=== PATIENT | female | born 1995 | race Caucasian/White ===

== ENCOUNTER 2019-07-18 11:59 | Emergency (ER) | payer BC, OTHER ==
[2019-07-18 12:19] VITALS: RESP 18
[2019-07-18] MEDS ORDERED: ACETAMINOPHEN TAB 500 MG TAB PO STA (12:43)
[2019-07-18] MEDS ORDERED: DEXAMETHASONE SOD PHOSPHATE 10 MG/ML 1 ML VIAL IV STA (12:43)
[2019-07-18] MEDS ORDERED: ONDANSETRON 4 MG/2 ML VIAL IVP STA (12:46)
[2019-07-18] MEDS ORDERED: SODIUM CHLORIDE 0.9% 1,000 ML IV STA ×2 (12:47)
[2019-07-18] MEDS ORDERED: KETOROLAC 30 MG/ML 1 ML VIAL IVP STA (12:48)
[2019-07-18 12:53] LABS: Appearance,Urine Cloudy (Clear); Bacteria,Urine Occasional /hpf; Bilirubin,Urine Negative (Negative); Blood,Urine Negative (Negative); Color,Urine Yellow; Glucose,Urine (UA) Negative (Negative); Ketones,Urine 2+ (Negative); Leukocyte Esterase,Urine Negative (Negative); Mucus,Urine Moderate /hpf; Nitrite,Urine Negative (Negative); PH, Urine 5.5 (5.0-8.0); Protein,Urine Trace (Negative); Specific Gravity,Urine 1.023 (1.001-1.035); Squamous Epithelial Cell,Urine 15 /hpf (0-4); Urobilinogen,Urine <2.0 mg/dL (<2.0); WBC,Urine 2 /hpf (0-5)
--- NOTE | 2019-07-18 13:09 | ED ---
General Adult HPI - General Chief complaint: Abdominal Pain Stated complaint: Vomiting, cough, TIFFANIE Time Seen by Provider: 07/18/19 12:24 Source: patient, family Mode of arrival: ambulatory Limitations: no limitations - History of Present Illness Initial comments: this 23-year-old white female presents with a complaint of feeling sick over the last week. She's had a cough, runny nose, sore throat, chills, and upper abdominal pain. She's had some moderate fatigue as well. She was seen in urgent care couple days ago and had a negative strep test. They did put her on an antibiotic which she's taken for the last couple of days without any significant relief. She denies any actual known fever.She relates that she currently is taking the Keflex. She is unsure if she could be but states that this is a possibility. She has irregular periods and thinks her last period was in May. - Related Data Home Medications Medication Instructions Recorded Confirmed Naproxen [Naprosyn] 250 mg PO BID 01/09/16 01/09/16 Previous Rx's Medication Instructions Recorded Albuterol Sulfate [Proair Hfa] 1 - 2 puff INHALATION Q6HR PRN #1 07/18/19 inhaler Amoxic-Pot Clav 875-125Mg 1 each PO Q12HR #20 tablet 07/18/19 [Augmentin Xr 875-125] Metoclopramide [Reglan] 10 mg PO Q6H PRN #30 tab 07/18/19 Allergies Allergy/AdvReac Type Severity Reaction Status Date / Time No Known Allergies Allergy Verified 01/09/16 17:31 Review of Systems ROS Statement: Those systems with pertinent positive or pertinent negative responses have been documented in the HPI. ROS Other: All systems not noted in ROS Statement are negative. Past Medical History Past Medical History: No Reported History History of Any Multi-Drug Resistant Organisms: None Reported Past Surgical History: No Surgical Hx Reported Additional Past Surgical History / Comment(s): pyloric stenosis 6 wks Past Psychological History: No Psychological Hx Reported Smoking Status: Never smoker Past Alcohol Use History: Occasional Past Drug Use History: Marijuana General Exam Limitations: no limitations Course Vital Signs 07/18/19 07/18/19 12:16 14:19 Temperature 98.8 F Pulse Rate 72 62 Respiratory 18 18 Rate Blood Pressure 130/78 119/70 O2 Sat by Pulse 100 98 Oximetry Medical Decision Making - Medical Decision Making the patient was seen and examined. All diagnostics were reviewed. The urine came back slightly positive. The quantitative beta-hCG was significantly elevated. The chest x-ray was then canceled due to her . She does receive some Reglan intravenously as well as IV fluids and Tylenol. She is having some relief on recheck. It is felt as though her nausea could certainly be related to the . It also could be related to her current medical condition. The mono, strep, and and influenza test came back negative. The CBC was essentially within normal limits. It is felt that she likely does have a sinusitis. The possibility of a bronchitis certainly is possible as well. She'll be tried on several medications and it is felt as though she stable for outpatient treatment. She does relate understand that she should follow-up with an [facility] physician for further treatment as well. - Lab Data Result diagrams: 07/18/19 13:01 Lab Results 07/18/19 07/18/19 07/18/19 Range/Units 12:28 12:28 13:01 WBC 7.1 (3.8-10.6) k/uL RBC 4.34 (3.80-5.40) m/uL Hgb 13.6 (11.4-16.0) gm/dL Hct 41.5 (34.0-46.0) % MCV 95.6 (80.0-100.0) fL MCH 31.4 (25.0-35.0) pg MCHC 32.8 (31.0-37.0) g/dL RDW 12.8 (11.5-15.5) % Plt Count 183 (150-450) k/uL Neutrophils % 73 % Lymphocytes % 18 % Monocytes % 6 % Eosinophils % 1 % Basophils % 0 % Neutrophils # 5.2 (1.3-7.7) k/uL Lymphocytes # 1.3 (1.0-4.8) k/uL Monocytes # 0.4 (0-1.0) k/uL Eosinophils # 0.0 (0-0.7) k/uL Basophils # 0.0 (0-0.2) k/uL HCG, Quant mIU/mL Urine Color Yellow Urine Appearance Cloudy H (Clear) Urine pH 5.5 (5.0-8.0) Ur Specific Monitor 1.023 (1.001-1.035) Urine Protein Trace H (Negative) Urine Glucose (UA) Negative (Negative) Urine Ketones 2+ H (Negative) Urine Blood Negative (Negative) Urine Nitrite Negative (Negative) Urine Bilirubin Negative (Negative) Urine Urobilinogen <2.0 (<2.0) mg/dL Ur Leukocyte Esterase Negative (Negative) Urine WBC 2 (0-5) /hpf Ur Squamous Epith Cells 15 H (0-4) /hpf Urine Bacteria Occasional H (None) /hpf Urine Mucus Moderate H (None) /hpf Urine HCG, Qual Detected (Not Detectd) Heterophile Antibody (Negative) Influenza Type A RNA (Not Detectd) Influenza Type B (PCR) (Not Detectd) Group A Strep Rapid (Negative) 07/18/19 07/18/19 07/18/19 Range/Units 13:01 13:01 13:01 WBC (3.8-10.6) k/uL RBC (3.80-5.40) m/uL Hgb (11.4-16.0) gm/dL Hct (34.0-46.0) % MCV (80.0-100.0) fL MCH (25.0-35.0) pg MCHC (31.0-37.0) g/dL RDW (11.5-15.5) % Plt Count (150-450) k/uL Neutrophils % % Lymphocytes % % Monocytes % % Eosinophils % % Basophils % % Neutrophils # (1.3-7.7) k/uL Lymphocytes # (1.0-4.8) k/uL Monocytes # (0-1.0) k/uL Eosinophils # (0-0.7) k/uL Basophils # (0-0.2) k/uL HCG, Quant mIU/mL Urine Color Urine Appearance (Clear) Urine pH (5.0-8.0) Ur Specific Monitor (1.001-1.035) Urine Protein (Negative) Urine Glucose (UA) (Negative) Urine Ketones (Negative) Urine Blood (Negative) Urine Nitrite (Negative) Urine Bilirubin (Negative) Urine Urobilinogen (<2.0) mg/dL Ur Leukocyte Esterase (Negative) Urine WBC (0-5) /hpf Ur Squamous Epith Cells (0-4) /hpf Urine Bacteria (None) /hpf Urine Mucus (None) /hpf Urine HCG, Qual (Not Detectd) Heterophile Antibody Negative (Negative) Influenza Type A RNA Not Detected (Not Detectd) Influenza Type B (PCR) Not Detected (Not Detectd) Group A Strep Rapid Negative (Negative) 07/18/19 Range/Units 13:01 WBC (3.8-10.6) k/uL RBC (3.80-5.40) m/uL Hgb (11.4-16.0) gm/dL Hct (34.0-46.0) % MCV (80.0-100.0) fL MCH (25.0-35.0) pg MCHC (31.0-37.0) g/dL RDW (11.5-15.5) % Plt Count (150-450) k/uL Neutrophils % % Lymphocytes % % Monocytes % % Eosinophils % % Basophils % % Neutrophils # (1.3-7.7) k/uL Lymphocytes # (1.0-4.8) k/uL Monocytes # (0-1.0) k/uL Eosinophils # (0-0.7) k/uL Basophils # (0-0.2) k/uL HCG, Quant 057879.0 mIU/mL Urine Color Urine Appearance (Clear) Urine pH (5.0-8.0) Ur Specific Monitor (1.001-1.035) Urine Protein (Negative) Urine Glucose (UA) (Negative) Urine Ketones (Negative) Urine Blood (Negative) Urine Nitrite (Negative) Urine Bilirubin (Negative) Urine Urobilinogen (<2.0) mg/dL Ur Leukocyte Esterase (Negative) Urine WBC (0-5) /hpf Ur Squamous Epith Cells (0-4) /hpf Urine Bacteria (None) /hpf Urine Mucus (None) /hpf Urine HCG, Qual (Not Detectd) Heterophile Antibody (Negative) Influenza Type A RNA (Not Detectd) Influenza Type B (PCR) (Not Detectd) Group A Strep Rapid (Negative) Disposition Clinical Impression: Bronchitis, Sinusitis, Disposition: HOME SELF-CARE Condition: Good Additional Instructions: Please use Tylenol if needed for any fever or chills or pain. Please avoid any Motrin, ibuprofen, Advil, or Aleve. He also may utilize Mucinex DM if needed for cough and congestion safely during . Please follow-up with [facility] as soon as possible for care. Prescriptions: Amoxic-Pot Clav 875-125Mg [Augmentin Xr 875-125] 1 each PO Q12HR #20 tablet Albuterol Sulfate [Proair Hfa] 1 - 2 puff INHALATION Q6HR PRN #1 inhaler PRN Reason: Shortness Of Breath Or Wheezing Metoclopramide [Reglan] 10 mg PO Q6H PRN #30 tab PRN Reason: Nausea Is patient prescribed a controlled substance at d/c from ED?: No Referrals: Umang Jackson MD [Primary Care Provider] - 1-2 days Time of Disposition: 15:32
[2019-07-18] MEDS ORDERED: METOCLOPRAMIDE 5 MG/ML 2 ML VIAL IVP STA (13:10)
[2019-07-18 13:23] LABS: Basophils % (A) 0 %; Eosinophils % (A) 1 %; HCT 41.5 % (34.0-46.0); HGB 13.6 gm/dL (11.4-16.0); Lymphocytes # (A) 1.3 k/uL (1.0-4.8); Lymphocytes % (A) 18 %; MCH 31.4 pg (25.0-35.0); MCHC 32.8 g/dL (31.0-37.0); MCV 95.6 fL (80.0-100.0); Mean Platelet Volume 8.4; Monocytes # (A) 0.4 k/uL (0-1.0); Monocytes % (A) 6 %; Neutrophils # (A) 5.2 k/uL (1.3-7.7); Neutrophils % (A) 73 %; Platelet Count 183 k/uL (150-450); RBC 4.34 m/uL (3.80-5.40); RDW 12.8 % (11.5-15.5); WBC 7.1 k/uL (3.8-10.6)
[2019-07-18 15:43] VITALS: BP 119/75; PULSE 74; TEMP 98
== END 2019-07-18 15:41 | disposition home or self-care (01) ==
LOC: EC 11:59
DX: O99.519 Diseases of the respiratory system complicating pregnancy, unspecified trimester (principal); J40 Bronchitis, not specified as acute or chronic; J32.9 Chronic sinusitis, unspecified; Z3A.00 Weeks of gestation of pregnancy not specified
CPT/HCPCS: 36415; 85025; 86308; 81001; 81025; 84702; 87081; 87430; 87502; 99284; 96374; 96361; J2765

== ENCOUNTER 2019-08-05 18:31 | Emergency (ER) | payer BC ==
[2019-08-05 20:21] VITALS: RESP 18
[2019-08-05 21:36] LABS: Appearance,Urine Cloudy (Clear); Bacteria,Urine Rare /hpf; Bilirubin,Urine Negative (Negative); Blood,Urine Large (Negative); Calcium Oxalate Crystals,Urine Occasional /hpf; Color,Urine Yellow; Glucose,Urine (UA) Negative (Negative); Ketones,Urine Negative (Negative); Leukocyte Esterase,Urine Large (Negative); Mucus,Urine Many /hpf; Nitrite,Urine Negative (Negative); Protein,Urine 1+ (Negative); RBC,Urine 46 /hpf (0-5); Specific Gravity,Urine 1.024 (1.001-1.035); Squamous Epithelial Cell,Urine 9 /hpf (0-4); WBC,Urine 169 /hpf (0-5)
--- NOTE | 2019-08-05 21:37 | CT ---
EXAMINATION TYPE: CT abdomen pelvis wo con DATE OF EXAM: 08/05/2019 COMPARISON: None HISTORY: Bilateral flank pain and hematuria. x2 weeks ago. CT DLP: 377.6 mGycm Automated exposure control for dose reduction was used. Lung bases are clear. There is no pleural effusion. Heart size is normal. There is no pericardial eff usion. Liver and spleen appear normal. Bile ducts are not dilated. Stomach is intact. Gallbladder appears no rmal. There is no evidence of pancreatic mass. There is no adrenal mass. Kidneys have normal size and contour. There is no hydronephrosis. Ureters a re not dilated. Bladder distends smoothly. Uterus is anteverted. There is no free fluid in the pelvis . There is some retained fecal material in the large bowel. Appendix is not seen. I see no sign of th ickened appendix. Uterus is anteverted. There is no sign of a pelvic mass. The lumbar vertebra have normal spacing and alignment. Posterior elements are intact. Bony pelvis is intact. IMPRESSION: No evidence of renal stone or obstruction. Appendix not seen. No sign of appendicitis. Constipation.
[2019-08-05] MEDS ORDERED: cefTRIAXone 1,000 MG VIAL (IM USE) IM STA (21:40)
[2019-08-05] MEDS ORDERED: KETOROLAC 30 MG/ML 1 ML VIAL IVP STA (21:41)
[2019-08-05] MEDS ORDERED: cefTRIAXone IN SWFI 1,000 MG/10 ML SYRINGE IVP STA (21:41)
[2019-08-05 21:59] LABS: Basophils % (A) 0 %; Eosinophils % (A) 0 %; HCT 37.2 % (34.0-46.0); HGB 12.2 gm/dL (11.4-16.0); Lymphocytes # (A) 0.9 k/uL (1.0-4.8); Lymphocytes % (A) 17 %; MCH 31.2 pg (25.0-35.0); MCHC 32.9 g/dL (31.0-37.0); MCV 94.8 fL (80.0-100.0); Mean Platelet Volume 8.3; Monocytes # (A) 0.4 k/uL (0-1.0); Monocytes % (A) 8 %; Neutrophils # (A) 3.9 k/uL (1.3-7.7); Neutrophils % (A) 72 %; Platelet Count 171 k/uL (150-450); RBC 3.93 m/uL (3.80-5.40); RDW 13.5 % (11.5-15.5); WBC 5.3 k/uL (3.8-10.6)
[2019-08-05 22:10] LABS: ALT 10 U/L (4-34); AST 17 U/L (14-36); African American GFR (CKD) >90 (>60 ml/min/1.73 sqM); Albumin 3.5 g/dL (3.5-5.0); Alkaline Phosphatase 65 U/L (38-126); Anion Gap 6 mmol/L; Blood Urea Nitrogen 10 mg/dL (7-17); Calcium 8.5 mg/dL (8.4-10.2); Carbon Dioxide 24 mmol/L (22-30); Chloride 110 mmol/L (98-107); Glucose 97 mg/dL (74-99); Non-African American GFR(CKD) >90 (>60 ml/min/1.73 sqM); Potassium 3.9 mmol/L (3.5-5.1); Sodium 140 mmol/L (137-145); Total Bilirubin 0.4 mg/dL (0.2-1.3); Total Protein 6.3 g/dL (6.3-8.2)
--- NOTE | 2019-08-05 22:19 | ED ---
Female Urogenital HPI - General Chief complaint: Urogenital Stated complaint: UTI Time Seen by Provider: 08/05/19 20:46 Source: patient, family Mode of arrival: ambulatory Limitations: no limitations - History of Present Illness Initial comments: 24yo female 2 weeks status post medication induced elective , presenting to the ER for dysuria urgency frequency or hematuria. Patient states that she has had dysuria urgency frequency and blood in her urine for the past few days. Patient states is very painful to urinate that she could no longer take it. Patient states she has palpable back pain bilaterally. Patient denies unilateral plain nausea or vomiting. Patient denies history of kidney stones or fevers. Patient states that when the pain persisted today despite her taking 1- 2 left over keflex a day from previous UTI she presented to the ER for evaluation. Upon arrival patient does not appear distressed is afebrile. - Related Data Home Medications Medication Instructions Recorded Confirmed Naproxen [Naprosyn] 250 mg PO BID 01/09/16 01/09/16 Previous Rx's Medication Instructions Recorded Albuterol Sulfate [Proair Hfa] 1 - 2 puff INHALATION Q6HR PRN #1 07/18/19 inhaler Amoxic-Pot Clav 875-125Mg 1 each PO Q12HR #20 tablet 07/18/19 [Augmentin Xr 875-125] Metoclopramide [Reglan] 10 mg PO Q6H PRN #30 tab 07/18/19 Cephalexin [Keflex] 500 mg PO Q6HR 10 Days #40 cap 08/05/19 Sulfamethox-Tmp 800-160Mg [Bactrim 1 tab PO Q12HR 10 Days #20 tab 08/05/19 DS 800-160 mg] Allergies Allergy/AdvReac Type Severity Reaction Status Date / Time No Known Allergies Allergy Verified 08/05/19 20:22 Review of Systems ROS Statement: Those systems with pertinent positive or pertinent negative responses have been documented in the HPI. ROS Other: All systems not noted in ROS Statement are negative. Past Medical History Past Medical History: No Reported History History of Any Multi-Drug Resistant Organisms: None Reported Past Surgical History: No Surgical Hx Reported Additional Past Surgical History / Comment(s): pyloric stenosis 6 wks Past Psychological History: No Psychological Hx Reported Smoking Status: Never smoker Past Alcohol Use History: Occasional Past Drug Use History: Marijuana General Exam - General Exam Comments Initial Comments: General: The patient is awake and alert, in no distress, and does not appear acutely ill. Eye: +3 mm pupils are equal, round and reactive to light, extra-ocular movements are intact. No nystagmus. There is normal conjunctiva bilaterally. No signs of icterus. Ears, nose, mouth and throat: There are moist mucous membranes and no oral lesions. Neck: The neck is supple, there is no tenderness or JVD. Cardiovascular: There is a regular rate and rhythm. No murmur, rub or gallop is appreciated. Respiratory: Lungs are clear to auscultation, respirations are non-labored, breath sounds are equal. No wheezes, stridor, rales, or rhonchi. Gastrointestinal: Soft, non-distended, non-tender abdomen without masses or organomegaly noted. There is no rebound or guarding present. No CVA tenderness Musculoskeletal: Normal ROM, no tenderness. Strength 5/5. Sensation intact. Pulses equal bilaterally 2+. Neurological: A&O x 3. CN II-XII intact grossly, There are no obvious motor or sensory deficits. Coordination appears grossly intact. Speech is normal. Skin: Skin is warm and dry and no rashes or lesions are noted. Psychiatric: Cooperative, appropriate mood & affect, normal judgment. Limitations: no limitations Course Vital Signs 08/05/19 08/05/19 20:17 22:42 Temperature 99.5 F 99.1 F Pulse Rate 84 75 Respiratory 18 18 Rate Blood Pressure 148/88 139/88 O2 Sat by Pulse 100 99 Oximetry Medical Decision Making - Medical Decision Making CT revealed no stones. Urinalysis concerning for hemorrhagic cystitis. Patient states that she was supposed to get hCG Quant for [employer] to turn today. This was drawn for patient. However I feel is appropriate the patient has difficult levels given she is 2 weeks s/p miscarriage. Patient has no leukocytosis afebrile. Concern for developing pyelonephritis given the patient's complaint of bilateral back. Patient be treated with Bactrim. Return parameters and importance of f/u discussed. Discussed case with attenidng and patient was discharged appearing well nontoxic. - Lab Data Result diagrams: 08/05/19 21:50 08/05/19 21:50 Lab Results 08/05/19 08/05/19 08/05/19 Range/Units 21:00 21:00 21:50 WBC 5.3 (3.8-10.6) k/uL RBC 3.93 (3.80-5.40) m/uL Hgb 12.2 (11.4-16.0) gm/dL Hct 37.2 (34.0-46.0) % MCV 94.8 (80.0-100.0) fL MCH 31.2 (25.0-35.0) pg MCHC 32.9 (31.0-37.0) g/dL RDW 13.5 (11.5-15.5) % Plt Count 171 (150-450) k/uL Neutrophils % 72 % Lymphocytes % 17 % Monocytes % 8 % Eosinophils % 0 % Basophils % 0 % Neutrophils # 3.9 (1.3-7.7) k/uL Lymphocytes # 0.9 L (1.0-4.8) k/uL Monocytes # 0.4 (0-1.0) k/uL Eosinophils # 0.0 (0-0.7) k/uL Basophils # 0.0 (0-0.2) k/uL Sodium (137-145) mmol/L Potassium (3.5-5.1) mmol/L Chloride (98-107) mmol/L Carbon Dioxide (22-30) mmol/L Anion Gap mmol/L BUN (7-17) mg/dL Creatinine (0.52-1.04) mg/dL Est GFR (CKD-EPI)AfAm (>60 ml/min/1.73 sqM) Est GFR (CKD-EPI)NonAf (>60 ml/min/1.73 sqM) Glucose (74-99) mg/dL Calcium (8.4-10.2) mg/dL Total Bilirubin (0.2-1.3) mg/dL AST (14-36) U/L ALT (4-34) U/L Alkaline Phosphatase (38-126) U/L Total Protein (6.3-8.2) g/dL Albumin (3.5-5.0) g/dL HCG, Quant mIU/mL Urine Color Yellow Urine Appearance Cloudy H (Clear) Urine pH 6.0 (5.0-8.0) Ur Specific [place] 1.024 (1.001-1.035) Urine Protein 1+ H (Negative) Urine Glucose (UA) Negative (Negative) Urine Ketones Negative (Negative) Urine Blood Large H (Negative) Urine Nitrite Negative (Negative) Urine Bilirubin Negative (Negative) Urine Urobilinogen 2.0 (<2.0) mg/dL Ur Leukocyte Esterase Large H (Negative) Urine RBC 46 H (0-5) /hpf Urine WBC 169 H (0-5) /hpf Ur Squamous Epith Cells 9 H (0-4) /hpf Calcium Oxalate Crystal Occasional H (None) /hpf Urine Bacteria Rare H (None) /hpf Urine Mucus Many H (None) /hpf Urine HCG, Qual Detected (Not Detectd) 08/05/19 08/05/19 Range/Units 21:50 21:50 WBC (3.8-10.6) k/uL RBC (3.80-5.40) m/uL Hgb (11.4-16.0) gm/dL Hct (34.0-46.0) % MCV (80.0-100.0) fL MCH (25.0-35.0) pg MCHC (31.0-37.0) g/dL RDW (11.5-15.5) % Plt Count (150-450) k/uL Neutrophils % % Lymphocytes % % Monocytes % % Eosinophils % % Basophils % % Neutrophils # (1.3-7.7) k/uL Lymphocytes # (1.0-4.8) k/uL Monocytes # (0-1.0) k/uL Eosinophils # (0-0.7) k/uL Basophils # (0-0.2) k/uL Sodium 140 (137-145) mmol/L Potassium 3.9 (3.5-5.1) mmol/L Chloride 110 H (98-107) mmol/L Carbon Dioxide 24 (22-30) mmol/L Anion Gap 6 mmol/L BUN 10 (7-17) mg/dL Creatinine 0.69 (0.52-1.04) mg/dL Est GFR (CKD-EPI)AfAm >90 (>60 ml/min/1.73 sqM) Est GFR (CKD-EPI)NonAf >90 (>60 ml/min/1.73 sqM) Glucose 97 (74-99) mg/dL Calcium 8.5 (8.4-10.2) mg/dL Total Bilirubin 0.4 (0.2-1.3) mg/dL AST 17 (14-36) U/L ALT 10 (4-34) U/L Alkaline Phosphatase 65 (38-126) U/L Total Protein 6.3 (6.3-8.2) g/dL Albumin 3.5 (3.5-5.0) g/dL HCG, Quant 271.2 mIU/mL Urine Color Urine Appearance (Clear) Urine pH (5.0-8.0) Ur Specific [place] (1.001-1.035) Urine Protein (Negative) Urine Glucose (UA) (Negative) Urine Ketones (Negative) Urine Blood (Negative) Urine Nitrite (Negative) Urine Bilirubin (Negative) Urine Urobilinogen (<2.0) mg/dL Ur Leukocyte Esterase (Negative) Urine RBC (0-5) /hpf Urine WBC (0-5) /hpf Ur Squamous Epith Cells (0-4) /hpf Calcium Oxalate Crystal (None) /hpf Urine Bacteria (None) /hpf Urine Mucus (None) /hpf Urine HCG, Qual (Not Detectd) Disposition Clinical Impression: Pyelonephritis Disposition: HOME SELF-CARE Condition: Good Instructions (If sedation given, give patient instructions): Urinary Tract Infection in (ED) Additional Instructions: Please use medication as discussed. Please follow-up with family doctor in the next 2 days, and OBGYN as scheduled. Please return to emergency room if the symptoms increase or worsen or for any other concerns. Prescriptions: Sulfamethox-Tmp 800-160Mg [Bactrim DS 800-160 mg] 1 tab PO Q12HR 10 Days #20 tab Cephalexin [Keflex] 500 mg PO Q6HR 10 Days #40 cap Is patient prescribed a controlled substance at d/c from ED?: No Referrals: Umang Jackson MD [Primary Care Provider] - 1-2 days Time of Disposition: 22:19
[2019-08-05 22:47] VITALS: BP 139/88; PULSE 75; TEMP 99.1
== END 2019-08-05 22:42 | disposition home or self-care (01) ==
LOC: EC 18:31
DX: N12 Tubulo-interstitial nephritis, not specified as acute or chronic (principal); Z87.59 Personal history of other complications of pregnancy, childbirth and the puerperium
CPT/HCPCS: 36415; 80053; 85025; 81001; 81025; 84702; 74176; 99284; 96374; 96375; J0696; J1885

== ENCOUNTER → 2021-06-14 | Outpatient (CLI) | payer OTHER ==
--- NOTE | 2021-06-15 09:25 | USB ---
Reason for exam: clinical finding. History: Patient is nulliparous. Took hormonal contraceptives for 1 month beginning at age 17. Physical Findings: Nurse Summary: 3cm nodule in the left breast at 1 o'clock (nurse dw). US Breast Limited LT Left limited breast ultrasound including focal area of concern, retroareolar and axilla demonstrates a 2.5 x 1.8 x 2.7cm solid, hypoechoic lesion at 12 o'clock. These results were verbally communicated with the patient and result sheet given to the patient on 06/14/21. ASSESSMENT: Suspicious, BI-RAD 4 RECOMMENDATION: Ultrasound core biopsy of the left breast. Called Dr. Bradshaw's office with mammographic findings and has scheduled an appointment for the patient with Dr. Mckinley. Office will notify patient with appointment date and time. PRELIMINARY REPORT CALLED AND FAXED TO DR. MCKINLEY ON 06/15/21.
== END | disposition home or self-care (01) ==
LOC: RADMAMWWP 13:52
PROVIDERS: ATTEND Family Medicine
DX: N63.20 Unspecified lump in the left breast, unspecified quadrant (principal)

== ENCOUNTER → 2021-08-24 | Outpatient (CLI) | payer OTHER ==
[2021-08-24 09:34] VITALS: BP 135/90; PULSE 98; RESP 16; TEMP 98.2
--- NOTE | 2021-08-24 09:55 | P.GSHP ---
History of Present Illness H&P Date: 08/24/21 Chief Complaint: Mass left breast Amberly is a 26-year-old white female seen in consultation for Dr. Jackson regarding a mass in her left breast. She underwent a left breast ultrasound on [id number] which revealed a lesion in the 12:00 area which was 2.5 x 2.7 cm in size and solid. Ultrasound core biopsy was recommended. She is able to feel this for approximately a year. It is painful if anything presses on it. It does not feel any other lumps masses or nodules in her breasts. She is not complaining of any nipple discharge. Has not had any trauma or infection in her breast. She is not taking any control pills or hormones. She did for a month when she was 17. Caffeine: 4 cans coke/day nicotine: vapes daily chocolate: occasional BCP: none, hormones: none Family history: Negative for cancer Hormonal history: Menarche: 16 A1, age at 24 periods irregular Surgical History: cervical cone biopsy pyloric stenosis as an infant Medial History: none Social History: nicotine: vaping for a year alcohol: stopped this year; used to drink twice a week drugs: Marijuana daily recreation - Constitutional Constitutional: Denies chills, Denies fever - EENT Eyes: denies blurred vision, denies pain Ears: deny: decreased hearing, tinnitus Ears, nose, mouth and throat: Denies headache, Denies sore throat - Breasts Breasts: bilateral: as per HPI - Cardiovascular Cardiovascular: Denies chest pain, Denies shortness of breath - Respiratory Respiratory: Denies cough, Denies 7 - Gastrointestinal Gastrointestinal: Denies abdominal pain, Denies diarrhea, Denies nausea, Denies vomiting - Genitourinary (Female) Comment: UTI in past Genitourinary: Denies dysuria, Denies hematuria - Menstruation Menstruation: Reports cycle variable - Musculoskeletal Musculoskeletal: Denies myalgias - Integumentary Comment: tatoos - Neurological Neurological: Denies numbness, Denies weakness - Psychiatric Psychiatric: Denies anxiety, Denies depression - Endocrine Endocrine: Reports weight change, Denies fatigue - Hematologic/Lymphatic Comment: none - Allergic/Immunologic Allergic/Immunologic: Reports seasonal allergies Past Medical History Past Medical History: No Reported History History of Any Multi-Drug Resistant Organisms: None Reported Past Surgical History: No Surgical Hx Reported Additional Past Surgical History / Comment(s): pyloric stenosis @ 6 wks old. cone biopsy cervix Past Anesthesia/Blood Transfusion Reactions: No Reported Reaction Past Psychological History: No Psychological Hx Reported Smoking Status: Vaper Past Alcohol Use History: Occasional Past Drug Use History: Marijuana Medications and Allergies Home Medications Medication Instructions Recorded Confirmed Type No Known Home Medications 08/24/21 08/24/21 History Allergies Allergy/AdvReac Type Severity Reaction Status Date / Time No Known Allergies Allergy Verified 08/24/21 09:28 Surgical - Exam Vital Signs Temp Pulse Resp BP 98.2 F 98 16 135/90 08/24/21 09:28 08/24/21 09:28 08/24/21 09:28 08/24/21 09:28 - General no distress - Eyes normal ocular movement - ENT no hearing loss - Neck trachea midline - Respiratory normal respiratory effort, clear to auscultation - Cardiovascular Rhythm: regular Heart Sounds: normal: S1, S2 - Abdomen Abdomen: soft - Integumentary tatoos - Musculoskeletal normal gait - Psychiatric oriented to time, oriented to person, oriented to place, speech is normal, memory intact Breast Exam: BRA: 36A inspection: Bulge noted in the left breast in the upper outer quadrant area Palpation: Right breast: Multiple positional exam very dense breast no discrete dominant masses or nodules of concern Right axilla: No adenopathy of concern Left breast: Bulge noted in the left breast in the upper outer quadrant this is consistent with a palpable fullness which is the same as seen on ultrasound, dense breasts no other dominant masses or nodules of concern Left axilla: No adenopathy of concern Results Ultrasound reviewed findings most likely consistent with fibroadenoma Assessment and Plan Assessment: Impression: Mass left breast Abnormal left breast ultrasound Dense breast Plan: Ultrasound core biopsy left breast 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 Jackson
== END | disposition home or self-care (01) ==
LOC: WWCWWP 09:16
PROVIDERS: ATTEND Surgery
DX: Z53.9 Procedure and treatment not carried out, unspecified reason (principal)

== ENCOUNTER → 2021-08-27 | Day surgery (SDC) | payer OTHER ==
[2021-08-27 12:30] VITALS: RESP 16; TEMP 97.9
--- NOTE | 2021-08-27 13:46 | USB ---
EXAMINATION TYPE: US biopsy breast VAD LT DATE OF EXAM: 08/27/2021 CLINICAL HISTORY: R92.8, Abnormal ultrasound. Palpable painful breast mass. TECHNIQUE: Ultrasound guided core biopsy of left breast. COMPARISON: Prior ultrasound June 14, 2021 FINDINGS: The procedure of ultrasound guided core biopsy was explained to the patient. Benefits, alt ernatives, and risks were discussed. An informed consent was then obtained. The patient was placed in supine positioning for imaging and for the procedure. Preprocedure ultraso und redemonstrates a oval well-defined heterogeneous slightly vascular Hypoechoic mass measuring 2.9 cm long axis at the 12:00 position left breast. The overlying skin was prepped and draped in usual s terile fashion. Lidocaine is used as anesthetic into the skin and subcutaneous tissue. Lidocaine with epinephrine is used as anesthetic into the deeper tissue up to area of concern in the left breast. Under ultrasound guidance, a vacuum assisted biopsy gun device was used to obtain 2 core samples. Ronan pling was difficult due to lesion mobility but successful. Biopsy clip not placed due to well-visual ized lesion under ultrasound and patient age. The patient tolerated the procedure well without any immediate complication. The patient was kept in the radiology department for short stay after the procedure and then discharged home in stable condi tion. IMPRESSION: Successful, uncomplicated ultrasound guided core biopsy of area of concern in the left br east, full pathology results to follow. Low index of suspicion at time of procedure, favor fibroadenoma.
[2021-08-27 14:01] VITALS: BP 113/73; PULSE 67
== END ==
LOC: RADUSWWP 12:16
PROVIDERS: ATTEND Surgery
DX: R92.8 Other abnormal and inconclusive findings on diagnostic imaging of breast (principal); D24.2 Benign neoplasm of left breast
CPT/HCPCS: 88305; 19083; J2001

== ENCOUNTER → 2021-08-31 | Outpatient (CLI) | payer OTHER ==
[2021-08-31 12:07] VITALS: BP 125/76; PULSE 88; RESP 16; TEMP 98.1
--- NOTE | 2021-08-31 12:30 | P.PN ---
Subjective Progress Note Date: 08/31/21 Principal diagnosis: fibroadenoma left breast Amberly is a 26-year-old white female seen in consultation for Dr. Jackson regarding a mass in her left breast. She underwent a left breast ultrasound on [id number] which revealed a lesion in the 12:00 area which was 2.5 x 2.7 cm in size and solid. Ultrasound core biopsy was recommended. She is able to feel this for approximately a year. It is painful if anything presses on it. It does not feel any other lumps masses or nodules in her breasts. She is not complaining of any nipple discharge. Has not had any trauma or infection in her breast. She is not taking any control pills or hormones. She did for a month when she was 17. 08-27-21 ultrasound core biopsy , fibroadenoma; she tolerated the biopsy without any difficulty. This is symptomatic for the patient Caffeine: 4 cans coke/day nicotine: vapes daily chocolate: occasional BCP: none, hormones: none Family history: Negative for cancer Hormonal history: Menarche: 16 A1, age at 24 periods irregular Surgical History: cervical cone biopsy pyloric stenosis as an infant Medial History: none Social History: nicotine: vaping for a year alcohol: stopped this year; used to drink twice a week drugs: Marijuana daily recreation - Constitutional Constitutional: Denies chills, Denies fever - EENT Eyes: denies blurred vision, denies pain Ears: deny: decreased hearing, tinnitus Ears, nose, mouth and throat: Denies headache, Denies sore throat - Breasts Breasts: bilateral: as per HPI - Cardiovascular Cardiovascular: Denies chest pain, Denies shortness of breath - Respiratory Respiratory: Denies cough - Gastrointestinal Gastrointestinal: Denies abdominal pain, Denies diarrhea, Denies nausea, Denies vomiting - Genitourinary (Female) Comment: UTI in past Genitourinary: Denies dysuria, Denies hematuria - Menstruation Menstruation: Reports cycle variable - Musculoskeletal Musculoskeletal: Denies myalgias - Integumentary Comment: tatoos - Neurological Neurological: Denies numbness, Denies weakness - Psychiatric Psychiatric: Denies anxiety, Denies depression - Endocrine Endocrine: Reports weight change, Denies fatigue - Hematologic/Lymphatic Comment: none - Allergic/Immunologic Allergic/Immunologic: Reports seasonal allergies Objective - Vital Signs Vital signs: Vital Signs Temp 98.1 F 08/31/21 12:03 Pulse 88 08/31/21 12:03 Resp 16 08/31/21 12:03 BP 125/76 08/31/21 12:03 Pulse Ox Intake & Output 08/30/21 08/31/21 08/31/21 18:59 06:59 18:59 Weight 58.967 kg - Exam BMI 21 - Constitutional General appearance: Present: cooperative - EENT Eyes: Present: EOMI ENT: Present: hearing grossly normal - Neck Neck: Present: normal ROM - Respiratory Respiratory: bilateral: CTA - Cardiovascular Heart sounds: normal: S1, S2 - Gastrointestinal General gastrointestinal: Present: soft - Integumentary Integumentary: Present: normal turgor - Musculoskeletal Musculoskeletal: Present: gait normal - Psychiatric Psychiatric: Present: A&O x's 3, appropriate affect, intact judgment & insight - Additional findings Additional findings: Breast Exam: BRA: 36A Inspection: bilateral grade 1 ptosis, bulge in the UOQ left breast, biopsy site clean and dry Preparation: Right breast: Multiple positional exam dense breast no discrete dominant masses or nodules of concern Right axilla: No adenopathy of concern Left breast: Bulge noted in the left breast in the upper outer quadrant consistent with a palpable fullness which is approximately 2-1/2 cm in size Left axilla: No adenopathy of concern Assessment and Plan Assessment: Impression: Palpable mass left breast upper outer quadrant biopsy positive fibroadenoma Plan: Resection of symptomatic fibroadenoma left breast most likely use a circumareolar incision, onco-plastic tissue transfer CC: Dr. Jackson Risks and benefits of the procedure discussed with the patient risk include but are not limited to bleeding, infection, reaction to the anesthetic. Additionally its possible fibroadenoma could recur in which case we would need to possibly reexcised.
== END | disposition home or self-care (01) ==
LOC: WWCWWP 11:34
PROVIDERS: ATTEND Surgery
DX: Z53.9 Procedure and treatment not carried out, unspecified reason (principal)

== ENCOUNTER 2022-05-01 18:49 | Emergency (ER) | payer OTHER ==
[2022-05-01 18:56] VITALS: RESP 16; TEMP 97.9
[2022-05-01] MEDS ORDERED: methylPREDNISolone SOD SUCCI 125 MG/2 ML VIAL IM ONE (19:44)
[2022-05-01] MEDS ORDERED: FAMOTIDINE 20 MG TAB PO STA (19:44)
[2022-05-01] MEDS ORDERED: DIPH,PERTUS(ACELL)TETVAC-LF 0.5 ML VIAL IM ONE (21:01)
--- NOTE | 2022-05-01 21:02 | ED ---
General Adult HPI - General Chief complaint: Allergic Reaction Stated complaint: Bee sting - allergic reaction,TIFFANIE Time Seen by Provider: 05/01/22 19:24 Source: patient, RN notes reviewed, old records reviewed Mode of arrival: wheelchair Limitations: no limitations - History of Present Illness Initial comments: Patient is a 26-year-old female who presents emergency department concern for an ALLERGIC reaction. Patient has either a bug bite or bee sting over the dorsal aspect of the left hand. This occurred approximately 2 hours prior to arrival. She states that she began having swelling at the site which is improved after some Benadryl. However she was concerned that she may be having increased work of breathing. Wanted to be evaluated. No history of ALLERGIC reactions. Denies any difficulty swallowing or eating. Denies any history of asthma. Has no other acute complaints at this time. Denies chest pain, fevers, chills, cough. Denies rhinorrhea. Denies any rashes other than swelling with dorsal aspect of the left hand. Sensation when her last tetanus was. Denies nausea, vomiting, abdominal pain. Present for further evaluation at this time. Took Benadryl prior to arrival. - Related Data Previous Rx's Medication Instructions Recorded Ibuprofen [Motrin] 600 mg PO Q8HR PRN #15 tab 11/17/21 Allergies Allergy/AdvReac Type Severity Reaction Status Date / Time No Known Allergies Allergy Verified 05/01/22 18:56 Review of Systems ROS Statement: Those systems with pertinent positive or pertinent negative responses have been documented in the HPI. Review of Systems: CONST: Denies fever EYES: Denies blurry vision ENT: Denies nasal congestion C/V: Denies Chest pain RESP: Denies shortness of breath GI: Denies abdominal pain : Denies dysuria SKIN: Swelling over left hand. MSK: Denies joint pain. NEURO: Denies headache ROS Other: All systems not noted in ROS Statement are negative. Past Medical History Past Medical History: No Reported History History of Any Multi-Drug Resistant Organisms: None Reported Past Surgical History: No Surgical Hx Reported Additional Past Surgical History / Comment(s): pyloric stenosis @ 6 wks old. cone biopsy cervix Past Anesthesia/Blood Transfusion Reactions: No Reported Reaction Past Psychological History: No Psychological Hx Reported Smoking Status: Vaper Past Alcohol Use History: Occasional Past Drug Use History: Marijuana General Exam - General Exam Comments Initial Comments: General: Appears in no acute distress. HEAD: Normal with no signs of head trauma. EYES: PERRLA, EOMI, conjunctiva normal, no discharge. ENT: Hearing grossly intact, normal oropharynx. Negative stridor. Tongue is not swollen. RESPIRATORY: Clear breath sounds bilaterally. No wheezes, rales, or rhonchi. No wheezing. No dyspnea. No hypoxia. C/V: Regular rate and rhythm. S1 and S2 auscultated, no edema, peripheral pulses 2+ and intact throughout ABD: Abd is soft, nontender, nondistended EXT: Normal range of motion, no obvious deformity SKIN: No rashes or lesions observed on exposed skin. Mild swelling over the dorsal aspect of the left hand. No obvious stinger or bite. NEURO: Alert and oriented 4. No focal deficits. Limitations: no limitations Course Vital Signs 05/01/22 05/01/22 18:54 20:11 Temperature 97.9 F Pulse Rate 74 70 Respiratory 16 16 Rate Blood Pressure 149/100 O2 Sat by Pulse 100 99 Oximetry Medical Decision Making - Medical Decision Making Based on the patient's presentation and physical exam, she is having what appears to be a mild ALLERGIC reaction to the posterior aspect of her left hand. Could be secondary to a bite or sting but uncertain. Patient will have tetanus updated. She is having no signs of anaphylaxis at this time. However we will provide her with a dose of steroids, famotidine in addition to the Benadryl that she took. We will observe her for a short period time as well. She was in agreement with this plan. Vital signs within normal limits. Following approximately 1 hour of observation, patient's exam is unchanged. She will let go home. I believe this is reasonable. Strict return precautions were discussed. She has Benadryl at home as needed. Discussed return for any worsening signs of nausea, vomiting, difficulty swallowing or breathing. I instructed the patient to follow up with their PCP in the next 1-3 days. I explained that the patient should return to the emergency department if they experience any worsening symptoms. Strict return precautions were discussed with the patient. The patient expressed understanding of these instructions. I answered all questions that the patient had. The patient was discharged home in good condition with their prescriptions and follow up information. Disposition Clinical Impression: Allergic reaction Disposition: HOME SELF-CARE Condition: Good Instructions (If sedation given, give patient instructions): Insect Bite or Sting (ED), Allergies (ED) Is patient prescribed a controlled substance at d/c from ED?: No Referrals: Umang Jackson MD [Primary Care Provider] - 1-2 days Time of Disposition: 20:45
[2022-05-01 21:21] VITALS: BP 143/88; PULSE 66
== END 2022-05-01 21:21 | disposition home or self-care (01) ==
LOC: EC 18:49
DX: T78.40XA Allergy, unspecified, initial encounter (principal); Z23 Encounter for immunization; F17.290 Nicotine dependence, other tobacco product, uncomplicated
CPT/HCPCS: 90471; 96372; 99283; 90715; J2930